=== PATIENT | male | born 1960 | race Two or more races ===

== ENCOUNTER 2017-03-13 19:03 | Emergency (ER) | payer BC, OTHER ==
[2017-03-13 19:32] VITALS: BP 122/72
--- NOTE | 2017-03-13 20:01 | UC ---
Truncal Trauma HPI - HPI Summary HPI Summary: 56 year old male presents with left sided rib and back pain. - History Of Current Complaint Chief Complaint: UCBackPain Stated Complaint: RIB INJURY Time Seen by Provider: 03/13/17 19:58 Hx Obtained From: Patient Onset/Duration: Sudden Onset Severity Initially: Moderate Severity Currently: Moderate Pain Scale Used: 0-10 Numeric - 7 Mechanism Of Injury: Blunt Trauma Aggravating Factor(s): Deep Breathing, Cough - Allergies/Home Medications Allergies/Adverse Reactions: Allergies Allergy/AdvReac Type Severity Reaction Status Date / Time No Known Allergies Allergy Verified 03/13/17 19:32 PMH/Surg Hx/FS Hx/Imm Hx Previously Healthy: Yes - Surgical History Surgical History: None - Social History Alcohol Use: Occasionally Substance Use Type: None Smoking Status (MU): Heavy Every Day Tobacco Smoker Review of Systems Constitutional: Negative Skin: Negative Eyes: Negative ENT: Negative Respiratory: Negative Cardiovascular: Negative Gastrointestinal: Negative Genitourinary: Negative Motor: Negative Neurovascular: Negative Musculoskeletal: Other: - left sided rib left scapula pain Neurological: Negative Psychological: Negative All Other Systems Reviewed And Are Negative: Yes Physical Exam Triage Information Reviewed: Yes Vital Signs: Initial Vital Signs Temp 36.5 C 03/13/17 19:28 Pulse 75 03/13/17 19:28 Resp 18 03/13/17 19:28 BP 122/72 03/13/17 19:28 Pulse Ox 98 03/13/17 19:28 Vital Signs Reviewed: Yes Eye Exam: Normal ENT Exam: Normal Dental Exam: Normal Neck exam: Normal Neck: Positive: 1 Respiratory Exam: Normal Cardiovascular Exam: Normal Abdominal Exam: Normal Musculoskeletal: Positive: Other: - left rib pain left scapula pain Neurological Exam: Normal Psychological Exam: Normal Skin Exam: Normal Truncal Trauma Course/Dx - Differential Dx/Diagnosis Provider Diagnoses: left rib pain. left scapula pain Discharge - Discharge Plan Condition: Stable Disposition: HOME Prescriptions: Meloxicam [Mobic] 7.5 mg PO BID PC #30 tab Methocarbamol TAB* [Robaxin 500 MG TAB*] 500 mg PO TID PRN #30 tab PRN Reason: Spasms - Back Patient Education Materials: Rib Contusion (ED) Referrals: No Primary Care Phys,NOPCP [Primary Care Provider] -
--- NOTE | 2017-03-13 20:30 | RAD ---
INDICATION: Left rib injury COMPARISON: None TECHNIQUE: Multiple views of the left ribs were obtained. FINDINGS: Bones: There is no evidence of acute rib fracture. LUNGS: The lungs are clear. There is no pneumothorax. Pleural spaces: There is no evidence of hemothorax. Other: None IMPRESSION: NEGATIVE EXAMINATION.
[2017-03-13] MEDS ORDERED: Acetaminop/Codeine 30 MG TAB* 1 TAB (300 MG/30 MG) PO ONE (20:39)
== END 2017-03-13 21:04 | disposition home or self-care (01) ==
LOC: UCEAST 19:03
DX: R07.81 Pleurodynia (principal); M25.512 Pain in left shoulder; F17.210 Nicotine dependence, cigarettes, uncomplicated
CPT/HCPCS: 99202; A9270-GY; G0463

== ENCOUNTER 2017-03-15 07:57 | Emergency (ER) | payer BC ==
[2017-03-15] MEDS ORDERED: NS 0.9% 1000 ML* 1,000 ML IV ONE (08:11)
[2017-03-15] MEDS ORDERED: Morphine INJ* 4 MG/ML 1 ML CARPUJECT IV ONE (08:11)
[2017-03-15] MEDS ORDERED: Ondansetron INJ* 2 MG/ML VIAL IV ONE (08:11)
[2017-03-15 08:51] LABS: Hematocrit 42 % (42-52); Hemoglobin 14.5 g/dl (14.0-18.0); Mean Corpuscular HGB Conc 35 g/dl (31-36); Mean Corpuscular Hemoglobin 32 pg (27-31); Mean Corpuscular Volume 91 fL (80-94); Mean Platelet Volume 7 um3 (7.4-10.4); Red Blood Count 4.58 10^6/ul (4.0-5.4); Red Cell Distribution Width 13 % (10.5-15); White Blood Count 7.1 10^3/ul (3.5-10.8)
[2017-03-15 09:09] LABS: Albumin 4.2 g/dL (3.2-5.2); BUN/Creatinine Ratio 20.9 (8-20); Calcium 9.6 mg/dL (8.6-10.3); EGFR African American 110.8 (>60); EGFR Non-African American 86.2 (>60); Globulin 2.6 g/dL (2-4); Potassium 4.2 mmol/L (3.5-5.0); Total Bilirubin 0.9 mg/dL (0.2-1.0); Total Protein 6.8 g/dL (6.4-8.9)
[2017-03-15] MEDS ORDERED: Iohexol 300* (CONTRAST) 10 ML SDV IV ONE (09:17)
--- NOTE | 2017-03-15 09:55 | RAD ---
HISTORY: Chest pain, abdominal pain, subacute trauma COMPARISONS: None TECHNIQUE: Multiple contiguous axial CT scans were obtained of the chest, abdomen, and pelvis after the administration of intravenous contrast. Coronal and sagittal multiplanar reformations are submitted for review.. Oral contrast was not administered. Delayed images were obtained through the abdomen and pelvis. FINDINGS: CHEST NECK AND THYROID: The lower neck and thyroid are unremarkable. CHEST WALL: There is no lower cervical, axillary, or supraclavicular lymphadenopathy by size criteria. HEART AND PERICARDIUM: The heart is unremarkable. AORTA AND PULMONARY VASCULATURE: The aorta and pulmonary vasculature are normal. MEDIASTINUM: There is no mediastinal lymphadenopathy by size criteria. EDAN: There is no hilar lymphadenopathy by size criteria. AIRWAY AND ESOPHAGUS: The airway is unremarkable, without endobronchial filling defect. The esophagus is grossly normal. LUNG PARENCHYMA: There is a 0.6 cm nodule of the right lower lobe along the fissure, best seen on axial image 37. There is a 0.5 cm nodule of the left lower lobe on axial image 43. There is mild ground glass opacification of the right lung apex and to a lesser extent in the right upper lobe along the minor fissure. There is apical bullous disease bilaterally. PLEURA: No pleural abnormalities are noted. There is no appreciable pneumothorax. BONES AND SOFT TISSUES: There is nondisplaced fracture of the posterior aspect of the left eighth rib, best seen on coronal image 73. ABDOMEN/PELVIS: LIVER: The liver is normal in shape, size, contour, and attenuation. BILE DUCTS: There is no intrahepatic or extrahepatic biliary dilatation. GALLBLADDER: The gallbladder is normal, without pericholecystic inflammatory change. PANCREAS: The pancreas is normal, without mass or ductal dilatation. SPLEEN: Normal in size and appearance. UPPER GI TRACT: Evaluation of the gastrointestinal tract is limited by incomplete gastric distention. The upper GI tract is unremarkable. SMALL BOWEL \\T\\ MESENTERY: The small bowel is normal in contour, course, and caliber. There is no obstruction or dilatation. COLON: The colon is normal in contour, course, caliber. There is no pericolonic inflammatory change. ADRENALS: Normal bilaterally. KIDNEYS: The kidneys are normal in shape, size, contour, and axis. There is no hydronephrosis or nephrolithiasis. BLADDER: The bladder is smooth in contour. PELVIC ORGANS: The prostate gland is normal. The seminal vesicles are symmetric. AORTA: There is calcific atherosclerotic disease of the abdominal aorta and its branches, without aneurysmal dilatation IVC: Unremarkable LYMPH NODES: There is no lymphadenopathy by size criteria. ABDOMINAL WALL: There is no evidence for abdominal wall hernia. BONES AND SOFT TISSUES: Mild degenerative changes are noted. OTHER: There is no active arterial extravasation. There is no free intraperitoneal fluid or free intracranial gas. IMPRESSION: 1. NONDISPLACED FRACTURE OF THE POSTERIOR ASPECT OF THE LEFT EIGHTH RIB. 2. BILATERAL PULMONARY PARENCHYMAL NODULES MEASURING UP TO 0.6 CM IN SIZE. THE RECOMMENDATIONS FOR FOLLOWUP AND MANAGEMENT OF INCIDENTALLY DETECTED MULTIPLE PULMONARY NODULES GREATER THAN OR EQUAL TO 6 MM BUT LESS THAN OR EQUAL TO 8 MM IN SIZE, IN A PATIENT WITHOUT A HISTORY OF MALIGNANCY, INCLUDE FOLLOWUP CT IN 3-6 MONTHS, THEN CONSIDER AGAIN AT 18-24 MONTHS FOR A LOW-RISK PATIENT OR FOLLOWUP CT IN 3-6 MONTHS, THEN AGAIN AT 18-24 MONTHS FOR A HIGH RISK PATIENT. 3. MILD FIBROTIC CHANGES OF THE RIGHT LUNG. 4. ATHEROSCLEROSIS. 5. NO ACUTE CT PATHOLOGY OF THE ABDOMEN OR PELVIS. NOTES: SIZE = AVERAGE LENGTH AND WIDTH; HIGH RISK IS DEFINED A HISTORY OF SMOKING OR OTHER KNOW RISK FACTORS FOR LUNG CANCER; LOW RISK IS DEFINED MINIMAL OR ABSENT HISTORY OF SMOKING OR OTHER KNOWN RISK FACTORS. Darrick, H, ABBIE Johnson, GREGORY Hawk, et al (2017) "Guidelines for Management of Incidental Pulmonary Nodules Detected on CT Images: From the Fleischner Society 2017." Radiology; 284(1): 228-243. doi:10.1148/radiol.0111033511 .
[2017-03-15 10:47] VITALS: BP 114/78
--- NOTE | 2017-03-16 07:21 | ED ---
Amanuel Block Angela, scribed for Valentín Meyer MD on 03/15/17 at 0815 . Back Pain - HPI Summary HPI Summary: This pt is a 56 y/o male presenting to [facility] c/o mid thoracic back pain radiating to his left ribs 5 days ago s/p log came on top of him. Pt reports he was riding on a tractor when a log came on top of him. He states he was bent over a seat. He notes the log had an approximate diameter of 8 inches. Pt went to Urgent Care 2 days ago and had an XR done, which resulted negative. He notes he is SOB. Pt denies any abd pain. He notes his pain is alleviated when laying on top of a pillow. His pain is aggravated with movement. He denies any PMHx. NKDA. Pt denies taking any medications daily. - History of Current Complaint Chief Complaint: EDChestWallPain Stated Complaint: LT RIB PAIN Time Seen by Provider: 03/15/17 08:04 Hx Obtained From: Patient, Family/Risk Compliance Analyst - Onset/Duration: Lasting Days, Still Present Onset/Duration: Started Days Ago Timing: Lasting Days Pain Intensity: 4 Pain Scale Used: 0-10 Numeric Aggravating Symptom(s): Movement Alleviating Symptom(s): Other - laying on a pillow Associated Signs And Symptoms: Positive: Other - SOB. Negative: Abdominal Pain - Allergies/Home Medications Allergies/Adverse Reactions: Allergies Allergy/AdvReac Type Severity Reaction Status Date / Time No Known Allergies Allergy Verified 03/15/17 08:29 PMH/Surg Hx/FS Hx/Imm Hx Endocrine/Hematology History: Denies: Hx Diabetes Cardiovascular History: Denies: Hx Hypertension Infectious Disease History: No Infectious Disease History: Denies: Traveled Outside the [place] in Last 30 Days - Family History Known Family History: Positive: Cardiac Disease - father from a [place]. - Social History Alcohol Use: Occasionally Substance Use Type: Reports: Marijuana Hx Tobacco Use: Yes Smoking Status (MU): Heavy Every Day Tobacco Smoker Review of Systems Negative: Fever, Chills Eyes: Negative ENT: Negative Positive: Shortness Of Breath Negative: Abdominal Pain Positive: Other - back pain, left sided rib pain Skin: Negative Neurological: Negative All Other Systems Reviewed And Are Negative: Yes Physical Exam - Summary Physical Exam Summary: VITAL SIGNS: Reviewed. GENERAL: Patient is a well-developed and nourished male who is lying comfortable in the stretcher. Patient is not in any acute respiratory distress. HEAD AND FACE: No signs of trauma. No ecchymosis, hematomas or skull depressions. No sinus tenderness. EYES: PERRLA, EOMI x 2, No injected conjunctiva, no nystagmus. EARS: Hearing grossly intact. Ear canals and tympanic membranes are within normal limits. MOUTH: Oropharynx within normal limits. NECK: Supple, trachea is midline, no adenopathy, no JVD, no carotid bruit, no c- spine tenderness, neck with full ROM. CHEST: Symmetric, no tenderness at palpation LUNGS: Clear to auscultation bilaterally. No wheezing or crackles. CVS: Regular rate and rhythm, S1 and S2 present, no murmurs or gallops appreciated. ABDOMEN: Soft, non-tender. No signs of distention. No rebound no guarding, and no masses palpated. Bowel sounds are normal. EXTREMITIES: FROM in all major joints, no edema, no cyanosis or clubbing. MSK: There is tenderness in the left rib cage area. There is no bruising or deformity noted, just tenderness. NEURO: Alert and oriented x 3. No acute neurological deficits. Speech is normal and follows commands. SKIN: Dry and warm Triage Information Reviewed: Yes Vital Signs On Initial Exam: Initial Vitals Temp Pulse Resp BP Pulse Ox 97.6 F 69 16 122/84 97 03/15/17 07:59 03/15/17 07:59 03/15/17 07:59 03/15/17 07:59 03/15/17 07:59 Vital Signs Reviewed: Yes Diagnostics - Vital Signs Vital Signs Temp Pulse Resp BP Pulse Ox 03/15/17 07:59 97.6 F 69 16 122/84 97 - Laboratory Lab Results: Lab Results 03/15/17 03/15/17 Range/Units 08:25 08:25 WBC 7.1 (3.5-10.8) 10^3/ul RBC 4.58 (4.0-5.4) 10^6/ul Hgb 14.5 (14.0-18.0) g/dl Hct 42 (42-52) % MCV 91 (80-94) fL MCH 32 H (27-31) pg MCHC 35 (31-36) g/dl RDW 13 (10.5-15) % Plt Count 301 (150-450) 10^3/ul MPV 7 L (7.4-10.4) um3 Neut % (Auto) 60.3 (38-83) % Lymph % (Auto) 26.4 (25-47) % Putnam % (Auto) 10.3 H (1-9) % Eos % (Auto) 2.4 (0-6) % Baso % (Auto) 0.6 (0-2) % Absolute Neuts (auto) 4.3 (1.5-7.7) 10^3/ul Absolute Lymphs (auto) 1.9 (1.0-4.8) 10^3/ul Absolute Monos (auto) 0.7 (0-0.8) 10^3/ul Absolute Eos (auto) 0.2 (0-0.6) 10^3/ul Absolute Basos (auto) 0 (0-0.2) 10^3/ul Absolute Nucleated RBC 0 10^3/ul Nucleated RBC % 0 Sodium 136 (133-145) mmol/L Potassium 4.2 (3.5-5.0) mmol/L Chloride 106 (101-111) mmol/L Carbon Dioxide 26 (22-32) mmol/L Anion Gap 4 (2-11) mmol/L BUN 19 (6-24) mg/dL Creatinine 0.91 (0.67-1.17) mg/dL Est GFR ( Amer) 110.8 (>60) Est GFR (Non-Af Amer) 86.2 (>60) BUN/Creatinine Ratio 20.9 H (8-20) Glucose 103 H (70-100) mg/dL Calcium 9.6 (8.6-10.3) mg/dL Total Bilirubin 0.90 (0.2-1.0) mg/dL AST 14 (13-39) U/L ALT 14 (7-52) U/L Alkaline Phosphatase 70 (34-104) U/L Total Creatine Kinase 76 (10-223) U/L Total Protein 6.8 (6.4-8.9) g/dL Albumin 4.2 (3.2-5.2) g/dL Globulin 2.6 (2-4) g/dL Albumin/Globulin Ratio 1.6 (1-3) Result Diagrams: 03/15/17 08:25 03/15/17 08:25 Lab Statement: Any lab studies that have been ordered have been reviewed, and results considered in the medical decision making process. - CT CT chest/abd/pel CT Interpretation: Positive (See Comments) - IMPRESSION: 1. Nondisplaced fracture of the posterior aspect of the left eighth rib. 2. Bilateral pulmonary parenchymal nodules measuring up to 0.6 cm in size. The recommendations for follow up and management of incidentally detected multiple pulmonary nodules greater than or equal to 6 mm but less than or equal to 8 mm in size. In a patient without a history of malignancy, include follow up CT in 3-6 months, then consider again at 18-24 months for a low-risk patient or follow up CT in 3- 6 months, then again at 18-24 months for a high risk patient. 3. Mild fibrotic changes of the right lung. 4. Atheroslcerosis. 5. No acute CT pathology of the abdomen or pelvis. ED physician has reviewed this radiology report and agrees. CT Interpretation Completed By: Radiologist - EKG 0857 Cardiac Rate: Bradycardia - 51 bpm EKG Rhythm: Sinus Rhythm EKG Interpretation: No ST elevation Back Pain Course/Dx - Course Assessment/Plan: This pt is a 56 y/o male presenting to [facility] c/o mid thoracic back pain radiating to his left ribs 5 days ago s/p log came on top of him. Pt reports he was riding on a tractor when a log came on top of him. He states he was bent over a seat. He notes the log had an approximate diameter of 8 inches. Pt went to Urgent Care 2 days ago and had an XR done, which resulted negative. He notes he is SOB. Pt denies any abd pain. He notes his pain is alleviated when laying on top of a pillow. His pain is aggravated with movement. He denies any PMHx. NKDA. Pt denies taking any medications daily. Test results without any significant abnormalities except for glucose of 103. CT chest/ abdomen/pelvis shows 1. Nondisplaced fracture of the posterior aspect of the left eighth rib. 2. Bilateral pulmonary parenchymal nodules measuring up to 0.6 cm in size. The recommendations for follow up and management of incidentally detected multiple pulmonary nodules greater than or equal to 6 mm but less than or equal to 8 mm in size. In a patient without a history of malignancy, include follow up CT in 3-6 months, then consider again at 18-24 months for a low-risk patient or follow up CT in 3-6 months, then again at 18-24 months for a high risk patient. 3. Mild fibrotic changes of the right lung. 4. Atheroslcerosis. 5. No acute CT pathology of the abdomen or pelvis. I decided to do the imaging as described above since the pt had trauma and his symptoms are worsening. Pt was given morphine, zofran and IV fluids. His symptoms improved after these medications. Findings are consistent with an 8th rib fracture. Therefore, the pt will be discharged home with prescriptions for Robaxin and Percocet, and follow up from his PCP. The pt is feeling better. Pt is hemodynamically stable, alert and oriented x3. - Diagnoses Differential Diagnosis/HQI/PQRI: Positive: Herniated Disc, Strain, Sprain Provider Diagnoses: Fracture of eight ribs of left side Discharge - Discharge Plan Condition: Stable Disposition: HOME Prescriptions: Methocarbamol [Robaxin-750 MG TAB] 750 mg PO TID #12 tab oxyCODONE/Acetamin 5/325 MG* [Percocet 5/325 TAB*] 1 tab PO Q4H PRN #15 tab MDD 6 PRN Reason: Pain Patient Education Materials: Rib Fracture (ED) Referrals: Hi RAMIREZ,Royal Pantoja [Primary Care Provider] - Additional Instructions: Please follow up with your primary care provider. RETURN TO THE ED FOR ANY WORSENING SYMPTOMS. The documentation as recorded by the Amanuel membreno Angela accurately reflects the service I personally performed and the decisions made by , Valentín Meyer MD.
== END 2017-03-15 10:59 | disposition home or self-care (01) ==
LOC: ED 07:57
DX: S22.42XA Multiple fractures of ribs, left side, initial encounter for closed fracture (principal); R06.02 Shortness of breath; M54.9 Dorsalgia, unspecified; R07.81 Pleurodynia; F17.210 Nicotine dependence, cigarettes, uncomplicated; W22.8XXA Striking against or struck by other objects, initial encounter; Y93.9 Activity, unspecified; Y92.9 Unspecified place or not applicable
CPT/HCPCS: 36415; 71260; 74177; 80053; 82550; 85025; 93005; 96374; 96375; 99282; J2270; J2405; Q9967

== ENCOUNTER 2017-10-13 19:48 | Emergency (ER) | payer BC ==
[2017-10-13] MEDS ORDERED: Tetan/Diph/Pertus SYR(Tdap)* 0.5 ML SYR(BOOSTRIX) use SYR IM ONE (20:58)
[2017-10-13] MEDS ORDERED: NS 0.9% 1000 ML* 1,000 ML IV ONE (20:58)
[2017-10-13] MEDS ORDERED: HYDROmorphone INJ* 2 MG/ML CARPUJECT SYRINGE IV SLOW PU ONE (20:58)
[2017-10-13] MEDS ORDERED: Metoclopramide IV* 5 MG/ML 2 ML VIAL IV SLOW PU ONE (20:58)
[2017-10-13 21:42] LABS: ABS Basophils 0.1 10^3/ul (0-0.2); ABS Eosinophils 0 10^3/ul (0-0.6); ABS Monocytes 1.1 10^3/ul (0-0.8); ABS Neutrophils 15.5 10^3/ul (1.5-7.7); ABS Nucleated RBC 0 10^3/ul; Eosinophil % 0.3 % (0-6); Hematocrit 40 % (42-52); Hemoglobin 13.7 g/dl (14.0-18.0); Lymphocyte % 5.8 % (25-47); Mean Corpuscular HGB Conc 35 g/dl (31-36); Mean Corpuscular Hemoglobin 31 pg (27-31); Mean Corpuscular Volume 90 fL (80-94); Mean Platelet Volume 7.4 um3 (7.4-10.4); Nucleated Red Blood Cells % 0; Platelet Count 305 10^3/ul (150-450); Red Blood Count 4.42 10^6/ul (4.0-5.4); Red Cell Distribution Width 13 % (10.5-15); White Blood Count 17.7 10^3/ul (3.5-10.8)
--- NOTE | 2017-10-13 21:47 | RAD ---
Indication: Injury to the RIGHT thigh with a tree branch. Comparison: No relevant prior exams available on the [facility] [facility] for comparison. Technique: AP and lateral views RIGHT femur. REPORT AND IMPRESSION: Negative for RIGHT femur fracture or articular malalignment. Peripheral vascular calcifications. No conspicuous foreign body or subcutaneous emphysema. Unremarkable soft tissue contours.
[2017-10-13 21:49] LABS: INR 0.91 (0.77-1.02)
[2017-10-13 21:59] LABS: EGFR Non-African American 71.2 (>60)
[2017-10-13] MEDS ORDERED: Iohexol 300* (CONTRAST) 10 ML SDV IV ONE (22:02)
[2017-10-14 00:26] VITALS: BP 113/67
--- NOTE | 2017-10-14 00:53 | ED ---
Priti Block Rebecca, scribed for Yves Meeks MD on 10/13/17 at 2233 . Complex/Multi-Sys Presentation - HPI Summary HPI Summary: Pt is a 57 y/o M who presents to ED c/o right thigh and right-sided torso pain s /p trauma. At approximately 1830 today, the pt was using his tractor to cut down trees when a tree branch fell onto his right side. Negative LOC. Pt c/o lateral pain to the right thigh and right side of the torso, ranked severe, 10/ 10 on triage. Sx aggravated and alleviated by nothing. He has no focal weakness or numbness. - History Of Current Complaint Chief Complaint: EDExtremityLower Time Seen by Provider: 10/13/17 20:32 Hx Obtained From: Patient Onset/Duration: Lasting Hours, Still Present Severity Currently: Severe - 10/10 Location: Pain At: - right torso and right thigh Aggravating Factor(s): Nothing Alleviating Factor(s): Nothing Associated Signs And Symptoms: Positive: Other - Right torso and right thigh pain. Negative: Weakness - Allergies/Home Medications Allergies/Adverse Reactions: Allergies Allergy/AdvReac Type Severity Reaction Status Date / Time No Known Allergies Allergy Verified 10/13/17 19:59 PMH/Surg Hx/FS Hx/Imm Hx Endocrine/Hematology History: Denies: Hx Diabetes Cardiovascular History: Denies: Hx Hypertension - Immunization History Date of Tetanus Vaccine: unk Date of Influenza Vaccine: none Infectious Disease History: No Infectious Disease History: Denies: Traveled Outside the [place] in Last 30 Days - Family History Known Family History: Positive: Cardiac Disease - father from a [place]. - Social History Alcohol Use: Weekly Substance Use Type: Reports: Marijuana Substance Use Comment - Amount & Last Used: 2 days ago, 3 hits Hx Tobacco Use: Yes Smoking Status (MU): Heavy Every Day Tobacco Smoker Review of Systems Positive: Other - Lateral right thigh and right torso pain Neurological: Other - NEGATIVE: LOC Negative: Weakness, Numbness All Other Systems Reviewed And Are Negative: Yes Physical Exam - Summary Physical Exam Summary: VITAL SIGNS: Reviewed. GENERAL: ~Patient is a well-developed and nourished male who is lying comfortable in the stretcher. Patient is not in any acute respiratory distress. HEAD AND FACE: No signs of trauma. No ecchymosis, hematomas or skull depressions. No sinus tenderness. EYES: PERRLA, EOMI x 2, No injected conjunctiva, no nystagmus. EARS: Hearing grossly intact. Ear canals and tympanic membranes are within normal limits. MOUTH: Oropharynx within normal limits. NECK: Supple, trachea is midline, no adenopathy, no JVD, no carotid bruit, no c- spine tenderness, neck with full ROM. CHEST: Symmetric, no tenderness at palpation LUNGS: Clear to auscultation bilaterally. No wheezing or crackles. CVS: Regular rate and rhythm, S1 and S2 present, no murmurs or gallops appreciated. ABDOMEN: Road rash with tenderness over the right lower abdomen, laterally. Soft. No signs of distention. No rebound no guarding, and no masses palpated. Bowel sounds are normal. EXTREMITIES: Road rash over the right elbow. FROM in all major joints, no edema , no cyanosis or clubbing. NEURO: Alert and oriented x 3. No acute neurological deficits. Speech is normal and follows commands. SKIN: Dry and warm Triage Information Reviewed: Yes Vital Signs On Initial Exam: Initial Vitals Temp Pulse Resp BP Pulse Ox 98.3 F 66 16 92/54 95 10/13/17 19:50 10/13/17 19:50 10/13/17 19:50 10/13/17 19:50 10/13/17 19:50 Vital Signs Reviewed: Yes Diagnostics - Vital Signs Vital Signs Temp Pulse Resp BP Pulse Ox 10/13/17 22:15 98.5 F 90 18 164/88 98 10/13/17 22:01 88 14 113/65 91 10/13/17 22:00 88 15 91 10/13/17 21:31 90 22 112/65 96 10/13/17 21:27 25 10/13/17 21:01 84 20 118/76 93 10/13/17 21:00 86 24 93 10/13/17 20:31 74 15 110/74 95 10/13/17 19:50 98.3 F 66 16 92/54 95 - Laboratory Lab Results: Lab Results 10/13/17 10/13/17 10/13/17 Range/Units 21:31 21:31 21:31 WBC 17.7 H (3.5-10.8) 10^3/ul RBC 4.42 (4.0-5.4) 10^6/ul Hgb 13.7 L (14.0-18.0) g/dl Hct 40 L (42-52) % MCV 90 (80-94) fL MCH 31 (27-31) pg MCHC 35 (31-36) g/dl RDW 13 (10.5-15) % Plt Count 305 (150-450) 10^3/ul MPV 7.4 (7.4-10.4) um3 Neut % (Auto) 87.2 H (38-83) % Lymph % (Auto) 5.8 L (25-47) % Will % (Auto) 6.4 (0-7) % Eos % (Auto) 0.3 (0-6) % Baso % (Auto) 0.3 (0-2) % Absolute Neuts (auto) 15.5 H (1.5-7.7) 10^3/ul Absolute Lymphs (auto) 1.0 (1.0-4.8) 10^3/ul Absolute Monos (auto) 1.1 H (0-0.8) 10^3/ul Absolute Eos (auto) 0 (0-0.6) 10^3/ul Absolute Basos (auto) 0.1 (0-0.2) 10^3/ul Absolute Nucleated RBC 0 10^3/ul Nucleated RBC % 0 INR (Anticoag Therapy) 0.91 (0.77-1.02) APTT 26.2 (26.0-36.3) seconds Sodium 136 L (139-145) mmol/L Potassium 4.0 (3.5-5.0) mmol/L Chloride 105 (101-111) mmol/L Carbon Dioxide 22 (22-32) mmol/L Anion Gap 9 (2-11) mmol/L BUN 25 H (6-24) mg/dL Creatinine 1.07 (0.67-1.17) mg/dL Est GFR ( Amer) 91.6 (>60) Est GFR (Non-Af Amer) 71.2 (>60) BUN/Creatinine Ratio 23.4 H (8-20) Glucose 115 H (70-100) mg/dL Lactic Acid (0.5-2.0) mmol/L Calcium 8.8 (8.6-10.3) mg/dL Total Bilirubin 0.70 (0.2-1.0) mg/dL AST 20 (13-39) U/L ALT 19 (7-52) U/L Alkaline Phosphatase 59 (34-104) U/L Total Creatine Kinase 204 (10-223) U/L Total Protein 6.3 L (6.4-8.9) g/dL Albumin 4.1 (3.2-5.2) g/dL Globulin 2.2 (2-4) g/dL Albumin/Globulin Ratio 1.9 (1-3) Amylase 92 (29-103) U/L 10/13/17 Range/Units 21:31 WBC (3.5-10.8) 10^3/ul RBC (4.0-5.4) 10^6/ul Hgb (14.0-18.0) g/dl Hct (42-52) % MCV (80-94) fL MCH (27-31) pg MCHC (31-36) g/dl RDW (10.5-15) % Plt Count (150-450) 10^3/ul MPV (7.4-10.4) um3 Neut % (Auto) (38-83) % Lymph % (Auto) (25-47) % Will % (Auto) (0-7) % Eos % (Auto) (0-6) % Baso % (Auto) (0-2) % Absolute Neuts (auto) (1.5-7.7) 10^3/ul Absolute Lymphs (auto) (1.0-4.8) 10^3/ul Absolute Monos (auto) (0-0.8) 10^3/ul Absolute Eos (auto) (0-0.6) 10^3/ul Absolute Basos (auto) (0-0.2) 10^3/ul Absolute Nucleated RBC 10^3/ul Nucleated RBC % INR (Anticoag Therapy) (0.77-1.02) APTT (26.0-36.3) seconds Sodium (139-145) mmol/L Potassium (3.5-5.0) mmol/L Chloride (101-111) mmol/L Carbon Dioxide (22-32) mmol/L Anion Gap (2-11) mmol/L BUN (6-24) mg/dL Creatinine (0.67-1.17) mg/dL Est GFR ( Amer) (>60) Est GFR (Non-Af Amer) (>60) BUN/Creatinine Ratio (8-20) Glucose (70-100) mg/dL Lactic Acid 1.1 (0.5-2.0) mmol/L Calcium (8.6-10.3) mg/dL Total Bilirubin (0.2-1.0) mg/dL AST (13-39) U/L ALT (7-52) U/L Alkaline Phosphatase (34-104) U/L Total Creatine Kinase (10-223) U/L Total Protein (6.4-8.9) g/dL Albumin (3.2-5.2) g/dL Globulin (2-4) g/dL Albumin/Globulin Ratio (1-3) Amylase (29-103) U/L Result Diagrams: 10/13/17 21:31 10/13/17 21:31 Lab Statement: Any lab studies that have been ordered have been reviewed, and results considered in the medical decision making process. - Radiology Femur XR Xray Interpretation: No Acute Changes - Negative for RIGHT femur fracture or articular malalignment. Peripheral vascular calcifications. No conspicuous foreign body or subcutaneous emphysema. Unremarkable soft tissue contours. ED physician reviewed this radiology report. Radiology Interpretation Completed By: Radiologist - CT CT Chest/abd/pel CT Interpretation: Positive (See Comments) - 1.Fractures in the RIGHT T12, L1, L2 transverse processes. Minimal separation. 2. Likely pseudo-thickening in the colon; however in the proper clinical setting the differential also includes colitis. 3. There are incidental and/or chronic findings also present as noted. ED physician reviewed this radiology report. Pending official report. CT Interpretation Completed By: Radiologist Re-Evaluation - Re-Evaluation First Eval Re-Evaluation Time: 23:40 Change: Improved Comment: Discussed CT results and that the pt must follow up with his PCP. Symptoms have improved since onset. Complex Multi-Symp Course/Dx Assessment/Plan: Pt is a 57 y/o M who presents to ED c/o severe lateral right thigh and right-sided torso pain s/p trauma at 1830 today from a tree branch falling onto his right side. Negative LOC. He has no focal weakness or numbness. Blood work was done. Femur XR reveals no acute findings. CT Abd/Pel reveals transverse process fractures of the T12, L1, and L2 transverse processes on the right, with full findings above. In the ED course, pt received Dilaudid, Reglan, fluids and a Boostrix shot. Symptoms improved. Pt will be D/C to home with Dx of transverse process fractures of the vertebra with a follow up with his PCP and Rx for Percocet. He understands and agrees. - Diagnoses Provider Diagnoses: Fracture of transverse process of vertebra Discharge - Sign-Out/Discharge Documenting (check all that apply): Discharge/Admit/Transfer - Discharge - Discharge Plan Condition: Stable Disposition: HOME Prescriptions: oxyCODONE/Acetamin 5/325 MG* [Percocet 5/325 TAB*] 1 tab PO Q6H PRN #20 tab MDD 4 PRN Reason: Pain Patient Education Materials: Thoracolumbar Fracture (ED) Referrals: Hi RAMIREZ,Royal Pantoja [Primary Care Provider] - (Follow up with your primary care physician on Monday or Monday. ) The documentation as recorded by the Priti membreno Rebecca accurately reflects the service I personally performed and the decisions made by me, Yves Meeks MD.
--- NOTE | 2017-10-14 08:01 | RAD ---
HISTORY: Trauma, crush injury, hypertension COMPARISONS: March 15, 2017 TECHNIQUE: Multiple contiguous axial CT scans were obtained of the chest, abdomen, and pelvis after the administration of intravenous contrast. Coronal and sagittal multiplanar reformations are submitted for review.. Oral contrast was not administered. Delayed images were obtained through the abdomen and pelvis. FINDINGS: CHEST NECK AND THYROID: The lower neck and thyroid are unremarkable. CHEST WALL: There is no lower cervical, axillary, or supraclavicular lymphadenopathy by size criteria. HEART AND PERICARDIUM: The heart is unremarkable. AORTA AND PULMONARY VASCULATURE: The aorta and pulmonary vasculature are normal. MEDIASTINUM: There is no mediastinal lymphadenopathy by size criteria. EDNA: There is no hilar lymphadenopathy by size criteria. AIRWAY AND ESOPHAGUS: The airway is unremarkable, without endobronchial filling defect. The esophagus is grossly normal. 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 There are scattered small nodules, stable from March 15, 2017, measuring up to 0.6 cm. There are mild fibrotic changes with an apical predominance. PLEURA: No pleural abnormalities are noted. BONES AND SOFT TISSUES: Mild degenerative changes are noted. ABDOMEN/PELVIS: LIVER: The liver is normal in shape, size, contour, and attenuation. BILE DUCTS: There is no intrahepatic or extrahepatic biliary dilatation. GALLBLADDER: The gallbladder is normal, without pericholecystic inflammatory change. PANCREAS: The pancreas is normal, without mass or ductal dilatation. SPLEEN: Normal in size and appearance. UPPER GI TRACT: Evaluation of the gastrointestinal tract is limited by incomplete gastric distention. The upper GI tract is unremarkable. SMALL BOWEL & MESENTERY: The small bowel is normal in contour, course, and caliber. There is no obstruction or dilatation. COLON: The colon is normal in contour, course, caliber. There is no pericolonic inflammatory change. The colonic mucosal thickening noted on the pulmonary report as felt to represent an artifact of incomplete distention. ADRENALS: Normal bilaterally. KIDNEYS: The kidneys are normal in shape, size, contour, and axis. There is no hydronephrosis or nephrolithiasis. BLADDER: The bladder is smooth in contour. PELVIC ORGANS: The prostate gland is normal. The seminal vesicles are symmetric. AORTA: There is mild calcific atherosclerotic disease of the abdominal aorta and its branches, without aneurysmal dilatation IVC: Unremarkable LYMPH NODES: There is no lymphadenopathy by size criteria. ABDOMINAL WALL: There is no evidence for abdominal wall hernia. BONES AND SOFT TISSUES: There are minimally displaced fractures of the transverse processes of T12,. L1, and L2 on the right OTHER: There is no active arterial extravasation. IMPRESSION: 1. MINIMALLY DISPLACED FRACTURES OF THE TRANSVERSE PROCESSES OF T12, L1, L2 ON THE RIGHT. 2. AGAIN NOTED ARE PULMONARY PARENCHYMAL NODULES MEASURING UP TO 0.6 IMAGES IN SIZE, STABLE FROM MARCH 15, 2017. THE RECOMMENDATIONS FOR FOLLOWUP AND MANAGEMENT OF AN INCIDENTALLY DETECTED PULMONARY NODULE GREATER THAN OR EQUAL TO 6 MM BUT LESS THAN OR EQUAL TO 8 MM IN SIZE, IN A PATIENT WITHOUT A HISTORY OF MALIGNANCY, INCLUDE FOLLOWUP CT IN 6-12 MONTHS, THEN CONSIDER AGAIN AT 18-24 MONTHS FOR A LOW-RISK PATIENT OR FOLLOWUP CT IN 6-12 MONTHS, THEN AGAIN AT 18-24 MONTHS FOR A HIGH RISK PATIENT. NOTES: SIZE = AVERAGE LENGTH AND WIDTH; HIGH RISK IS DEFINED A HISTORY OF SMOKING OR OTHER KNOW RISK FACTORS FOR LUNG CANCER; LOW RISK IS DEFINED MINIMAL OR ABSENT HISTORY OF SMOKING OR OTHER KNOWN RISK FACTORS. Darrick, H, ABBIE Johnson, GREGORY Hawk, et al (2017) "Guidelines for Management of Incidental Pulmonary Nodules Detected on CT Images: From the Fleischner Society 2017." Radiology; 284(1): 228-243. doi:10.1148/[id number]
== END 2017-10-14 00:21 | disposition home or self-care (01) ==
LOC: ED 19:48
DX: S22.089A Unspecified fracture of T11-T12 vertebra, initial encounter for closed fracture (principal); S32.019A Unspecified fracture of first lumbar vertebra, initial encounter for closed fracture; S32.029A Unspecified fracture of second lumbar vertebra, initial encounter for closed fracture; W22.8XXA Striking against or struck by other objects, initial encounter; Y93.H2 Activity, gardening and landscaping; Y92.9 Unspecified place or not applicable; Z23 Encounter for immunization; F17.200 Nicotine dependence, unspecified, uncomplicated
CPT/HCPCS: 36415; 71260; 74177; 80053; 82150; 82550; 83605; 85025; 85610; 85730; 90471; 90715; 96361; 96374; 96375; 99283; J1170; J2765; Q9967

== ENCOUNTER 2020-03-04 09:07 | Observation (INO) ==
[2020-03-04 10:53] LABS: ABS Basophils 0.1 10^3/ul (0-0.2); ABS Eosinophils 0.3 10^3/ul (0-0.6); ABS Lymphocytes 1.9 10^3/ul (1.0-4.8); ABS Monocytes 0.6 10^3/ul (0-0.8); ABS Neutrophils 4.1 10^3/ul (1.5-7.7); Eosinophil % 4.4 %; Hematocrit 41 % (42-52); Hemoglobin 14.3 g/dL (14.0-18.0); Lymphocyte % 27.5 %; Mean Corpuscular HGB Conc 35 g/dL (31-36); Mean Corpuscular Hemoglobin 31 pg (27-31); Mean Corpuscular Volume 90 fL (80-94); Platelet Count 329 10^3/uL (150-450); Red Blood Count 4.56 10^6 /uL (4.18-5.48); Red Cell Distribution Width 13 % (10-15); White Blood Count 7.1 10^3/uL (3.5-10.8)
[2020-03-04 10:54] LABS: Urine Appearance Clear; Urine Bilirubin Negative (Negative); Urine Blood Negative (Negative); Urine Color Yellow; Urine Glucose Negative (Negative); Urine Ketones Negative (Negative); Urine Nitrite Negative (Negative); Urine Protein Negative (Negative); Urine Specific Gravity 1.013 (1.010-1.030); Urine Urobilinogen Negative (Negative)
[2020-03-04 11:04] LABS: Albumin 4.2 g/dL (3.2-5.2); Albumin/Globulin Ratio 1.6 (1-3); BUN/Creatinine Ratio 22.6 (8-20); C Reactive Protein 17.67 mg/L (<8.01); Calcium 9.9 mg/dL (8.6-10.3); EGFR African American 113.2 (>60); EGFR Non-African American 93.5 (>60); Globulin 2.6 g/dL (2-4); Potassium 4.1 mmol/L (3.5-5.0); Total Bilirubin 0.7 mg/dL (0.2-1.0); Total Protein 6.8 g/dL (6.4-8.9)
[2020-03-04] MEDS ORDERED: Iohexol 300 (CONTRAST) 10 ML SDV IV ONE (11:13)
[2020-03-04 12:30] LABS: INR 0.99 (0.82-1.09)
[2020-03-04] MEDS ORDERED: Morphine 2 MG/ML SYRINGE IV PRN (14:00)
[2020-03-04] MEDS ORDERED: Albuterol (2.5 MG) 0.5 % CONC 0.5 ML NEB.SOLN INH ONE (14:10)
[2020-03-04] MEDS ORDERED: Nicotine GUM 2MG FRUIT FLAVOR PO PRN (14:26)
[2020-03-05 06:34] LABS: ABS Basophils 0.1 10^3/ul (0-0.2); ABS Eosinophils 0.5 10^3/ul (0-0.6); ABS Lymphocytes 1.8 10^3/ul (1.0-4.8); ABS Monocytes 0.7 10^3/ul (0-0.8); ABS Neutrophils 5.2 10^3/ul (1.5-7.7); Eosinophil % 5.6 %; Hematocrit 41 % (42-52); Hemoglobin 14.4 g/dL (14.0-18.0); Lymphocyte % 22.1 %; Mean Corpuscular HGB Conc 35 g/dL (31-36); Mean Corpuscular Hemoglobin 32 pg (27-31); Mean Corpuscular Volume 90 fL (80-94); Mean Platelet Volume 7.2 fL (7.4-10.4); Platelet Count 322 10^3/uL (150-450); Red Blood Count 4.55 10^6 /uL (4.18-5.48); Red Cell Distribution Width 13 % (10-15); White Blood Count 8.3 10^3/uL (3.5-10.8)
[2020-03-05 06:58] LABS: Calcium 9.5 mg/dL (8.6-10.3); EGFR African American 113.2 (>60); EGFR Non-African American 93.5 (>60); Potassium 4.2 mmol/L (3.5-5.0)
[2020-03-05] MEDS ORDERED: Influenza VAC *QUAD* 2020-21* 0.5 ML SYRINGE IM ONE (09:00)
[2020-03-05 12:52] VITALS: BP 119/69
[2020-03-05 15:57] LABS: HDL Cholesterol 43.3 mg/dL
== END 2020-03-05 16:30 | disposition home or self-care (01) ==
LOC: ED 09:07 → MEDTELE 09:07
PROVIDERS: ADMIT Hospitalist; ATTEND Hospitalist